=== PATIENT | male | born 1985 | race Two or more races ===

== ENCOUNTER 2025-11-06 20:54 | Observation (INO) | payer MEDICAID, SELFPAY ==
[2025-11-06 21:35] VITALS: BP 127/78; PULSE 100; RESP 20; TEMP 36.6; O2SAT 98
--- NOTE | 2025-11-06 21:45 | XR_ITS ---
Examination: CT abdomen with intravenous contrast CT pelvis with intravenous contrast 2-D coronal reconstructions 2-D sagittal reconstructions Date and time of exam: November 07, 2025, 0010 hours INDICATIONS: Right lower abdominal pain nausea vomiting and diarrhea onset today. CTDI: vol (mGy) 5.96 DLP: (mGycm) 336 Technique: Multiple axial sections of the abdomen and pelvis have been obtained. 64 slice high-resolution scanner used. 3 mm axial sections have been obtained, post intravenous injection 30 cc [id number] 2-D sagittal, coronal reconstructions obtained. Low dose protocols were performed. One or more of the following dose reduction techniques were used; automated exposure control, adjustment of the mA and/or KV according to patient size, use of iterative reconstruction technique. Findings: 4 mm pulmonary nodule left lower lobe 2 mm pulmonary nodule right lower lobe 3 mm pulmonary nodule left lower lobe no visualized liver or splenic lesion Possible minimal gallbladder sludge Bowel loop at the lower margin of the liver right lobe End-stage atrophic right kidney Compensatory hypertrophy left kidney no hydronephrosis Aorta normal size Proximal small bowel loops are located in the right abdomen No obstruction Normal appendix No diverticulitis Intact urinary bladder No prostatomegaly The osseous structures are intact with mild degenerative disc disease L4-L5, L5-S1 IMPRESSION: Pulmonary nodules as above, recommend follow-up Recommend about a biliary sonography to exclude small stones gallbladder sludge End-stage atrophic right kidney Compensatory hypertrophy left kidney Normal appendix No bowel obstruction
--- NOTE | 2025-11-06 21:46 | PD.EDABDPN ---
ED Abdominal Pain RME/HPI General Chief Complaint: Nausea/Vomiting/Diarrhea Stated complaint: DIARRHEA,VOMITING Time seen by provider: 11/06/25 21:45 Arrival date/time: 11/06/25 20:54 40M with history of DM presents to ED with 2 days of ab pain and N/V. Yesterday there was some non-bloody diarrhea, but no longer. Limitations: no limitations Related Data Allergies Allergy/AdvReac Type Severity Reaction Status Date / Time No Known Allergies Allergy Verified 11/06/25 21:48 Review of Systems Review of Systems Systems Reviewed: All systems reviewed, normal except as documented Gastrointestinal Gastrointestinal: Reports as per HPI, Reports abdominal pain, Reports diarrhea, Reports nausea and Reports vomiting Past Medical History Past Medical History ENDOCRINE: Positive Diabetes Mellitus Type 2 Social History SMOKING STATUS: Current some day smoker ED Exam General Limitations: Present no limitations General appearance: Present alert and in no apparent distress Head Head exam: Present atraumatic Neck Neck exam: Present normal inspection, full ROM and trachea midline Chest Chest inspection: Present normal inspection and symmetric chest wall rise Abdominal Exam Abdominal exam: Present soft Abdominal tenderness: Present RLQ and moderate Neurological Exam Neurological exam: Present alert and oriented X3 Psychiatric Psychiatric exam: Present normal affect and normal mood Skin Skin exam: Present warm, dry, intact and normal color Course Quality Measures none Orders Category Date Time Status Patient Condition Routine Admission 11/07/25 05:[address] in Observation Status Routine Admission 11/07/25 05:20 Active Activity as Tolerated Routine Care 11/07/25 05:21 Ordered Bedside Blood Glucose Q6HR Care 11/07/25 05:30 Active COVID-19 Screening Questionnaire NOW Care 11/07/25 05:[address] Screening NOW Care 11/06/25 21:45 Active Decision to Admit X1 Care 11/07/25 05:01 Active NPO NOW Care 11/07/25 02:06 Active Notify provider NEEDED Care 11/07/25 05:20 Active Consult to General Surgery Stat Cons 11/07/25 05:01 Ordered Diet NPO (NOW) Diet 11/07/25 02:[address] abdomen pelvis w con Stat Exams 11/06/25 21:45 Taken US gall bladder Stat Exams 11/07/25 01:41 Taken XR chest 1V portable Stat Exams 11/06/25 22:29 Completed Alcohol, Blood Medical Stat Lab 11/06/25 21:54 Completed BMP [Basic Metabolic Panel] Stat Lab 11/07/25 01:50 Completed Beta Hydroxybutyrate Stat Lab 11/06/25 21:54 Completed CBC AM DRAW Lab 11/08/25 05:00 Ordered CBC AM DRAW Lab 11/09/25 05:00 Ordered CBC AM DRAW Lab 11/10/25 05:00 Ordered CBC Stat Lab 11/06/25 21:54 Completed CMP [Comprehensive Metabolic Panel] Stat Lab 11/06/25 21:54 Completed Drug Screen,Urine Stat Lab 11/06/25 23:45 Completed Glycohemoglobin w (eAG) AM DRAW Lab 11/08/25 05:00 Ordered Lipase Stat Lab 11/06/25 21:54 Completed Liver Panel Stat Lab 11/07/25 01:50 Completed Renal Function Panel AM DRAW Lab 11/08/25 05:00 Ordered Renal Function Panel AM DRAW Lab 11/09/25 05:00 Ordered Renal Function Panel AM DRAW Lab 11/10/25 05:00 Ordered Urinalysis, C/S if Indicated Stat Lab 11/06/25 23:45 Completed VBG [Venous Blood Gas] Stat Lab 11/06/25 21:54 Completed Acetaminophen Tab [Tylenol Tab] Med 11/07/25 05:20 Active 650 mg PO Q6H PRN Dextrose 50% Syr [D50w Syringe Abboject] Med 11/07/25 05:20 Active 25 ml IV Q15MIN PRN Dextrose 50% Syr [D50w Syringe Abboject] Med 11/07/25 05:20 Active 50 ml IV Q15MIN PRN DiphenhydrAMINE INJ [Benadryl Inj] Med 11/06/25 22:05 Discontinued 12.5 mg IVP X1 ONE Glucagon Inj Med 11/07/25 05:20 Active 1 mg IM Q15MIN PRN Heparin Inj Med 11/07/25 05:30 Active 5,000 unit SC Q12H INSULIN LISPRO (AdmeLOG) [HumaLOG] Med 11/07/25 05:30 Active See Protocol SC Q6H Insulin Regular Med 11/06/25 22:26 Discontinued 10 unit SC X1 ONE Metoclopramide Inj [Reglan Inj] Med 11/07/25 05:20 Active 10 mg IVP Q6H PRN Metoclopramide Inj [Reglan Inj] Med 11/06/25 22:05 Discontinued 10 mg IVP X1 ONE Morphine* Inj Med 11/06/25 21:45 Discontinued 4 mg IV X1 ONE Ondansetron Inj [Zofran Inj] Med 11/06/25 21:45 Discontinued 4 mg IVP X1 ONE Ringers Lactated 1000 ml [Lactated Ringers] 1,000 ml Med 11/07/25 02:27 Active IV 250 mls/hr Ringers Lactated 1000 ml [Lactated Ringers] 1,000 ml Med 11/06/25 22:05 Discontinued IV 999 mls/hr Ringers Lactated 1000 ml [Lactated Ringers] 1,000 ml Med 11/06/25 22:26 Discontinued IV 999 mls/hr Code Status Routine Oth 11/07/25 05:20 Ordered Oxygen Delivery PRN RT 11/07/25 05:20 Active Vital Signs Vital signs: Vital Signs Temperature 97.8 F 11/06/25 21:35 Pulse Rate 100 11/06/25 21:35 Respiratory Rate 20 11/06/25 21:35 Blood Pressure 127/78 11/06/25 21:35 Pulse Oximetry (%) 98 11/06/25 21:35 Oxygen Delivery Method Room Air 11/06/25 21:35 O2 at 98% on RA and WNLs Abdominal Pain MDM MDM Narrative MDM Narrative:: 40M with history of DM presents to ED with 2 days of ab pain and N/V. Yesterday there was some non-bloody diarrhea, but no longer. Physical exam reveals RLQ tenderness. Patient is afebrile, calm, and alert. Moderate leukocytosis. CMP elevated BS and anion-gap. Beta 3.0, but blood pH is normal. UA ketones and glucose. Lipase normal. Marijuana positive. Repeat LFTs reveals downtrending of bili. Repeat BMP reveals no more anion-gap or electrolyte abnormalities. Patient is feeling better after meds and no longer has N/V. Telerad CT reveals no appy, but there is malrotation small bowels w/o SBO. Also possible colitis. Finally, there also gallstones and sludge, but no evidence of cholecystitis, which US Telerad confirms. Spoke to Dr. Wong, gen surg MD, who will consult. Spoke to IM resident who reports to Dr. Mishra, who will admit. Patient data External records reviewed:: None Clinical information provided by:: patient Social determinants that could affect healthcare access:: none Patient has the following chronic illnesses:: DM How is presenting disease/condition affected by chronic disease/condition?: exacerbated by Evaluation data The following diagnostics were reviewed and interpreted by me:: lab results and radiology exam(s) Lab and/or radiology exams considered but not ordered:: ordered Interpretation Summary: above Medications / Prescriptions Medications or Prescriptions considered but not ordered:: ordered Medication administrations:: Medication Administration History Acetaminophen (Acetaminophen 325 Mg Tablet) 650 mg PO Q6H PRN PRN Reason: Fever >101.5 or pain 1-3 Stop: 12/07/25 05:19 Dextrose (Dextrose 50%-Water Inj 50 Ml Syringe) 25 ml IV Q15MIN PRN PRN Reason: BG 50-70 responsive npo pt Stop: 12/07/25 05:19 Dextrose (Dextrose 50%-Water Inj 50 Ml Syringe) 50 ml IV Q15MIN PRN PRN Reason: BG <50 OR BG <70 & pt unresponsive Stop: 12/07/25 05:19 Glucagon (Glucagon Inj 1 Mg Vial) 1 mg IM Q15MIN PRN PRN Reason: BG <70, and no IV access Heparin Sodium (Porcine) (Heparin Sod Inj 5000 Unit/Ml Vial) 5,000 unit SC Q12H ROSIBEL Stop: 11/21/25 05:29 Lactated Ringer's (Lactated Ringers) 1,000 mls @ 250 mls/hr IV .Q4H ONE Stop: 11/07/25 06:26 Last Admin: 11/07/25 02:32 Dose: 250 mls/hr Documented By: AU Insulin Human Lispro (Insulin Lispro (Admelog) 1 Unit/0.01 Ml Unit) 0 unit SC Q6H ROSIBEL; Protocol Stop: 12/07/25 05:29 Metoclopramide HCl (Metoclopramide Inj 5 Mg/Ml Vial 2 Ml) 10 mg IVP Q6H PRN; Protocol PRN Reason: NAUSEA OR VOMITING Stop: 12/07/25 05:19 Discontinued Medications Diphenhydramine HCl (Diphenhydramine Inj 50 Mg/Ml Vial) 12.5 mg IVP X1 ONE Stop: 11/06/25 22:06 Last Admin: 11/06/25 22:12 Dose: 12.5 mg Documented By: EE Lactated Ringer's (Lactated Ringers) 1,000 mls @ 999 mls/hr IV .Q1H1M ONE Stop: 11/06/25 23:05 Last Infusion: 11/06/25 23:48 Dose: Infused Documented By: Admin: 11/06/25 22:09 Dose: 999 mls/hr Documented By: EE Lactated Ringer's (Lactated Ringers) 1,000 mls @ 999 mls/hr IV .Q1H1M ONE Stop: 11/06/25 23:26 Last Infusion: 11/07/25 01:06 Dose: Infused Documented By: Admin: 11/06/25 22:56 Dose: 999 mls/hr Documented By: CCT Insulin Human Regular (Insulin Hum Regular 1 Unit/0.01 Ml (Per Unit)) 10 unit SC X1 ONE Stop: 11/06/25 22:27 Last Admin: 11/06/25 22:54 Dose: 10 unit Documented By: CCT Co-signed By: NICOLA Metoclopramide HCl (Metoclopramide Inj 5 Mg/Ml Vial 2 Ml) 10 mg IVP X1 ONE; Protocol Stop: 11/06/25 22:06 Last Admin: 11/06/25 22:12 Dose: 10 mg Documented By: EE Morphine Sulfate (Morphine Sulf Inj 4 Mg/Ml Vial) 4 mg IV X1 ONE Stop: 11/06/25 21:46 Last Admin: 11/06/25 22:06 Dose: 4 mg Documented By: EE Ondansetron HCl (Ondansetron Inj 2 Mg/Ml Inj 2 Ml) 4 mg IVP X1 ONE; Protocol Stop: 11/06/25 21:46 Last Admin: 11/06/25 22:06 Dose: 4 mg Documented By: NICOLA above Consultations Consultation(s) initiated? (list below): Yes Diagnosis Differential diagnosis abdominal pain: abdominal pain, acute appendicitis, calculus of kidney, constipation, diverticulitis, gastroenteritis, pancreatitis, small bowel obstruction and other (DKA, hyperglycemia, malrotation of bowel) Most likely diagnosis given after review of the tests above:: hyperglycemia, malrotation of bowel Admission Indicated Admission indicated?: indicated Admission Request Was there a request for admission?: Yes Admission Attestation Admission request attestation: Discussed case with [Dr. Mishra] from Hospitalist service regarding admission. Discussed patients ED course, exam findings, labs, and radiology results. The Hospitalist [agrees] to accept the patient for admission. Disposition Plan Disposition Plan: Admit Discharge Plan Plan Patient Disposition: Other Care w/in Hosp ([facility]) Prescriptions/Referrals Referrals: No Primary/Family,Physician [Primary Care Provider] - In 1 week Problem List Clinical Impression: Hyperglycemia, Malrotation of intestine Patient/Caregiver Discharge Instructions Print Language: Filipino Stand Alone Forms: Luz Award Info., Patient Portal Info Letter
[2025-11-06 22:01] LABS: Base Excess, Venous 0 (-3-3); Basophils # (Auto) 0.1 Thou/mm3 (0.0-0.2); Basophils % (Auto) 0 % (0-2.5); Eosinophils # (Auto) 0.0 Thou/mm3 (0.0-0.5); Eosinophils % (Auto) 0 % (0-10); Hematocrit 44.5 % (41.0-53.0); Hemoglobin 16.4 g/dL (13.5-16.0); Immature Granulocytes Auto 0.22 Thou/mm3 (0.00-0.00); Lymphocytes # (Auto) 1.3 Thou/mm3 (1.0-4.8); Lymphocytes % (Auto) 8 % (10-50); Mean Corpuscular HGB Conc 36.9 g/dl (31.0-37.0); Mean Corpuscular Hemoglobin 30.3 pg (25.0-35.0); Mean Corpuscular Volume 82 fL (80-100); Monocytes # (Auto) 0.4 Thou/mm3 (0.0-0.8); Monocytes % (Auto) 2 % (0-12); Neutrophils # (Auto) 13.4 Thou/mm3 (1.8-7.7); Neutrophils % (Auto) 88 % (37-80); Nucleated Red Blood Cell # 0.00 Thou/mm3 (0.00-0.00); Nucleated Red Blood Cell % 0 /100 WBC (0); O2 Saturation, Venous 63 % (96-97); PCO2, Venous 25 mmHg (36-56); PO2, Venous 28 mmHg (15-58); Platelet Count 346 Thou/mm3 (140-440); RDW Standard Deviation 36.4 fL (35.1-43.9); Red Blood Count 5.42 Miln/mm3 (4.50-5.90); White Blood Count 15.2 Thou/mm3 (3.8-10.6); pH, Venous 7.52 (7.33-7.66)
[2025-11-06] MEDS: ONDANSETRON INJ 2 MG/ML INJ 2 ML 4 MG IVP (22:06)
[2025-11-06] MEDS: MORPHINE SULF INJ 4 MG/ML VIAL IV (22:06)
[2025-11-06] MEDS: RINGERS LACTATED 1000 ML 1,000 ML 999 ML IV ×2 (22:09→22:56)
[2025-11-06 22:12] VITALS: BP 135/95; PULSE 93; RESP 18; TEMP 36.7; O2SAT 99
[2025-11-06 22:12] LABS: Beta Hydroxybutyrate 3.0 mmol/L (<0.6)
[2025-11-06] MEDS: METOCLOPRAMIDE INJ 5 MG/ML VIAL 2 ML 10 MG IVP (22:12)
[2025-11-06 22:23] LABS: Alanine Aminotransferase 9 U/L (10-49); Albumin, Serum 5.4 gm/dL (3.5-5.0); Albumin/Globulin Ratio 1.4 (1.2-2.2); Alcohol, Blood Medical < 3.0 mg/dL (0-10.0); Alkaline Phosphatase 90 U/L (46-116); Anion Gap 20 (7-16); Aspartate Amino Transferase 13 U/L (0-34); BUN/Creatinine Ratio 11 Ratio (12-20); Bilirubin,Total 1.2 mg/dL (0.3-1.2); Blood Urea Nitrogen 16 mg/dL (9-23); Calcium 10.7 mg/dL (8.3-10.6); Calcium (Corrected) 10.7 mg/dL (8.5-10.1); Carbon Dioxide 20.6 mMol/L (20.0-31.0); Chloride 93 mMol/L (98-107); Creatinine (Component) 1.4 mg/dL (0.6-1.3); Globulin 4.0 gm/dL (2.3-3.5); Lipase 31 U/L (12-53); Potassium 4.3 mMol/L (3.4-5.1); Sodium 134 mMol/L (136-145); Total Protein 9.4 gm/dL (5.7-8.2); eGFR > 60 See Note
--- NOTE | 2025-11-06 22:29 | XR_ITS ---
EXAMINATION: AP chest single view TECHNIQUE: AP portable upright chest single view Date and time: November 06, 2025, 11:01 p.m. INDICATIONS: Nausea vomiting abdominal pain beginning 2 days ago. FINDINGS: Normal heart size No pneumonia or pulmonary edema. Intact osseous structures IMPRESSION: No active disease
[2025-11-06 22:39] LABS: Osmolality,Calculated 287 (275-295)
[2025-11-06 22:51] LABS: Glucose 424 mg/dL (74-106)
[2025-11-06] MEDS: INSULIN HUM REGULAR 1 UNIT/0.01 ML (PER UNIT) 10 UNIT SC (22:54)
[2025-11-06 23:48] LABS: Collection Type, Urine Clean Catch
[2025-11-07 00:08] LABS: Amphetamine/Methamp Scrn,U Negative (Negative); Barbiturate Screen,Urine Negative (Negative); Benzodiazepines Screen,Urine Negative (Negative); Benzoylecgonine Screen, Ur Negative (Negative); Fentanyl Screen,Urine Negative (Negative); Opiate Screen,Urine Positive (Negative); THC Screen,Urine Positive (Negative)
[2025-11-07 00:20] LABS: Bilirubin,Urine Negative (Negative); Blood,Urine Negative (Negative); Clarity,Urine Clear (Clear/Hazy); Color,Urine Lt-Yellow (Lt Yel-Yel); Culture Indicated,Urine Not Indicated; Glucose, Urine 4+ (Negative); Ketones,Urine 4+ (Negative); Leukocyte Esterase,Urine Negative (Negative); Nitrite,Urine Negative (Negative); PH,Urine 5.5 (5.0-7.0); Protein,Urine 1+ (Neg - Trace); RBC,Urine 1 /hpf (0-3); Specific Gravity,Urine 1.036 (1.001-1.035); Squamous Epithelial Cell,Urine < 1 /hpf (0-5); Urobilinogen,Urine Negative mg/dL (0.0-1.0); WBC,Urine < 1 /hpf (0-5)
[2025-11-07 01:00] VITALS: BP 103/63; PULSE 103; RESP 17; TEMP 36.9; O2SAT 96
--- NOTE | 2025-11-07 01:23 | PRELIM_ITS ---
PRELIM ADDENDUM Faint contrast is noted in the intraabdominal vessels and renal pyramid (possibly due to small contrast bolus or infiltration of injected contrast), this limits evaluation of the adjacent structures. Suggest clinical correlation and follow up accordingly. These additional findings were discussed with Dr. Easton by Dr. Ruelas at at 02:42 AM 11/07/2025. Report Electronically Signed By: Manoj Ruelas 11/07/2025 2:50:43 AM [EST] ORIGINAL PRELIM REPORT: CT scan of the abdomen and pelvis without intravenous contrast (axial sections with sagittal and coronal reformats) November 07, 2025 0010 hours Clinical History: Right lower quadrant pain, nausea, vomiting, and some diarrhea Comparison: No prior study available for comparison at the time of interpretation. Findings: Mild fatty infiltration of the liver is seen. There is a 2.7 x 2 x 4 cm hypodense structure with small air loculus in the inferior margin of the right lobe of the liver (axial images 76. 95/264 ) most likely adjacent bowel segment. There is minimal gallbladder sludge, non-radiodense calculus without CT evidence of cholelithiasis or cholecystitis. The spleen, both adrenals, and pancreas are unremarkable. The visualized right kidney is atrophic (coronal image 82/132 ), most likely developmental. The left kidney is unremarkable. There is malrotation of the bowel with DJ flexure and the proximal small bowel loops located in the right side of the abdomen. There is no bowel obstruction. The cecum is low-lying in the pelvis. The appendix is within normal limits (axial image 154-170/264). There is wall thickening versus underdistention of the descending and transverse colon; possibility of colitis cannot be excluded. The urinary bladder is partially distended and shows mild wall thickening; possibility of cystitis cannot be excluded. There is no free fluid or free air. Aorta is unremarkable. There is disc disease in the lumbar spine, predominantly at L4-L5 and L5-S1 level. There are indeterminate lung nodules, largest measuring 5 mm subpleural nodule in the left lung base (axial image 10/264, series 3). Please note that evaluation of soft tissue/vascular structures and bowel loops is limited due to absence of IV and oral contrast. Impression: 1. No evidence of acute appendicitis. 2. Malrotation of the bowel. 3. Wall thickening versus underdistention of the descending and transverse colon; possibility of colitis cannot be excluded. 4. Gallbladder sludge/small calculi without CT evidence of cholecystitis. Suggest further evaluation with sonography, if clinically indicated. 5. Partially distended urinary bladder with mild wall thickening; possibility of cystitis cannot be excluded. 6. Indeterminate lung nodules as described. 7. Other findings as described above. Suggest correlation with clinical findings, comparison with prior studies and follow up accordingly. Report Electronically Signed By: Manoj Ruelas 11/07/2025 1:22:56 AM [EST]
--- NOTE | 2025-11-07 01:41 | XR_ITS ---
Examination: Abdomen sonogram, Limited Date and time of exam: November 07, 2025, 0300 hours INDICATIONS: Right upper abdominal pain nausea and vomiting today. Technique: Real-time gomez scale transabdominal sonographic images of the upper abdomen obtained. Findings: Normal gallbladder Normal common bile duct 0.40 cm Pancreatic head 2.1 cm Liver 12.97 cm hyperechoic area in the right lobe of the liver 2.1 x 2.0 x 2.5 cm Normal hepatopetal portal venous flow Patent IVC IMPRESSION: Normal gallbladder Probable hemangioma right lobe of the liver, recommend 3-month follow-up hepatic sonography
[2025-11-07 02:21] LABS: Alanine Aminotransferase 8 U/L (10-49); Albumin, Serum 4.3 gm/dL (3.5-5.0); Alkaline Phosphatase 71 U/L (46-116); Anion Gap 10 (7-16); Aspartate Amino Transferase 14 U/L (0-34); BUN/Creatinine Ratio 14 Ratio (12-20); Bilirubin,Direct 0.2 mg/dL (0.0-0.3); Bilirubin,Total 0.7 mg/dL (0.3-1.2); Blood Urea Nitrogen 15 mg/dL (9-23); Calcium 9.5 mg/dL (8.3-10.6); Carbon Dioxide 25.7 mMol/L (20.0-31.0); Chloride 100 mMol/L (98-107); Creatinine (Component) 1.1 mg/dL (0.6-1.3); Glucose 262 mg/dL (74-106); Osmolality,Calculated 281 (275-295); Potassium 4.0 mMol/L (3.4-5.1); Sodium 136 mMol/L (136-145); Total Protein 7.6 gm/dL (5.7-8.2); eGFR > 60 See Note
[2025-11-07 02:30] VITALS: BP 122/85; PULSE 99; RESP 20; TEMP 36.8; O2SAT 96
[2025-11-07] MEDS: RINGERS LACTATED 1000 ML 1,000 ML 250 ML IV (02:32)
--- NOTE | 2025-11-07 04:25 | PRELIM_ITS ---
Gallbladder ultrasound. November 07, 2025 0300 hours Clinical history: RUQ pain Comparison: No prior study is available for comparison. Findings: Gallbladder wall is 2 mm thick. No pericholecystic fluid. No cholelithiasis or gallbladder sludge. Common bile duct is 4 mm diameter. Pancreas is normal caliber without focal lesion. Liver is 13 cm long. Probable 2 cm hepatic hemangiomas are noted. No ascites. Main portal vein is antegrade. Inferior vena cava is patent. Impression: Normal gallbladder. Probable hepatic hemangiomas. Report Electronically Signed By: Renato Muse 11/07/2025 4:25:12 AM [EST]
--- NOTE | 2025-11-07 05:25 | PD.RESHP ---
Documentation for date of: 11/07/25 [facility] History of Present Illness Chief complaint: Abdominal pain and nausea/vomiting History of present illness: Patient is a 40-year-old male with history of type 2 diabetes mellitus who presented to [facility] ED on 11/06 for nausea and vomiting with abdominal pain for the past 2 days. 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 The patient states that he had some diarrhea a few days prior to his abdominal pain and nausea/vomiting. After the diarrhea stopped, the patient had abdominal pain and nausea and vomiting for about 2 days. The patient is still able to have bowel movements, with his most recent 1 yesterday. When the patient came into the ED, the patient was found to be in significant hyperglycemia with elevated beta hydroxybutyrate but without metabolic acidosis, and was treated with 10 units of regular insulin and 3 L of IV fluids, with the following renal panel showing improvement of the patient's hyperglycemia and continued lack of metabolic acidosis. The patient stated that he was recently prescribed both metformin and insulin, and became confused as to which one of the 2 medications he should take, so he ended up taking neither of them. Due to the patient's abdominal pain, CT abdomen/pelvis was performed, which found malrotation of bowel without bowel obstruction, gallbladder//small calculi without evidence of cholecystitis, and partially distended urinary bladder. A follow-up gallbladder ultrasound was performed, which found a normal gallbladder and a possible hepatic hemangioma. ED provider spoke with general surgery, who would like for the patient to be admitted under observation for further evaluation. The patient denies any fever, chest pain, shortness of breath, and dysuria. ED course: Initial vitals unremarkable. Initial labs significant for WBC 15.2, sodium 134, chloride 93, anion gap 20, creatinine 1.4, glucose 424, and beta hydroxybutyrate 3.0. Urinalysis was positive for 1+ protein, 4+ glucose, and 4+ ketones. Urine toxicology positive for marijuana and opiates (UA was done after administration of morphine). Patient was given 3 L of fluid and insulin regular 10 units, with repeat CMP showing improvement in patient's hyperglycemia and resolution of other electrolyte abnormalities Chest x-ray was unremarkable CT abdomen/pelvis shows malrotation of the bowel, gallbladder/small calculi without evidence of cholecystitis, and partially distended urinary bladder with mild wall thickening General surgery was consulted, who recommended admitting the patient under observation for further care and evaluation Past Surgical History: Heart surgery for murmur in his heart when he was 5 years old Current Medication(s): Patient's prescribed insulin and metformin, however is not taking any current medications at this time Allergies (w/ Reactions): NKDA Family History: Noncontributory Alcohol Intake: Occasional Tobacco/Vape Use: Patient denies Other Drug Use: Marijuana Recent sick contacts: 3 people in his house noted to be sick, no other reports of diarrhea however Review of Systems Review of Systems Systems Reviewed: All systems reviewed, normal except as documented Exam Vital Signs Temp Pulse Resp BP Pulse Ox O2 Del Method 98.2 F 99 20 122/85 H 96 Room Air 11/07/25 02:30 11/07/25 02:30 11/07/25 02:30 11/07/25 02:30 11/07/25 02:30 11/07/25 02:30 Narrative Exam Physical Exam: General: Alert, no acute distress. Skin: Warm, dry, intact. Head: Normocephalic, atraumatic. Eye: Normal conjunctiva, PERRL. Throat: Oral mucosa moist. No obvious lesions in oropharynx. Cardiovascular: Regular rate and rhythm, systolic murmur best heard in aortic/pulmonic region, +S1/S2. Surgical scars present over midline chest. Respiratory: Lungs are clear to auscultation, respirations unlabored, no crackles, no wheezing. Gastrointestinal: Soft, slight tenderness to palpation of abdomen on right side, non-distended. No guarding or rebound tenderness. Extremities: No edema, no cyanosis, no clubbing. 2+ radial pulse bilaterally, 2+ pedal pulse bilaterally. Neuro: No focal deficits observed. Conversant, moving all extremities. No overt cerebellar signs/incoordination. Psychiatric: Cooperative, appropriate affect. Results: Labs 11/07/25 05:49 11/07/25 05:49 Labs: Short CBC 11/06/25 Range/Units 21:54 WBC 15.2 H (3.8-10.6) Thou/mm3 Hgb 16.4 H (13.5-16.0) g/dL Hct 44.5 (41.0-53.0) % Plt Count 346 (140-440) Thou/mm3 BMP 11/06/25 11/07/25 21:54 01:50 Sodium 134 L 136 Potassium 4.3 4.0 Chloride 93 L 100 Carbon Dioxide 20.6 25.7 BUN 16 15 Creatinine 1.4 H 1.1 Glucose 424 H* 262 H D Calcium 10.7 H 9.5 Liver Function 11/06/25 11/07/25 Range/Units 21:54 01:50 Total Bilirubin 1.2 0.7 D (0.3-1.2) mg/dL Direct Bilirubin 0.2 (0.0-0.3) mg/dL AST 13 14 (0-34) U/L ALT 9 L 8 L (10-49) U/L Alkaline Phosphatase 90 71 D (46-116) U/L Albumin 5.4 H 4.3 D (3.5-5.0) gm/dL Urine 11/06/25 Range/Units 23:45 Urine Color Lt-Yellow (Lt Yel-Yel) Urine Clarity Clear (Clear/Hazy) Urine pH 5.5 (5.0-7.0) Ur Specific [place] 1.036 H (1.001-1.035) Urine Protein 1+ A (Neg - Trace) Urine Glucose (UA) 4+ A (Negative) ABG Interpretation ABG results: 11/06/25 21:54 VBG pH 7.52 VBG pCO2 25 L VBG pO2 28 VBG Base Excess 0 Quality Measures Quality Measures VTE prophylaxis Medications Home Medications and Allergies Allergies Allergy/AdvReac Type Severity Reaction Status Date / Time No Known Allergies Allergy Verified 11/06/25 21:48 Visit Medications Acetaminophen (Acetaminophen 325 Mg Tablet) 650 mg PO Q6H PRN PRN Reason: Fever >101.5 or pain 1-3 Stop: 12/07/25 05:19 Dextrose (Dextrose 50%-Water Inj 50 Ml Syringe) 25 ml IV Q15MIN PRN PRN Reason: BG 50-70 responsive npo pt Stop: 12/07/25 05:19 Dextrose (Dextrose 50%-Water Inj 50 Ml Syringe) 50 ml IV Q15MIN PRN PRN Reason: BG <50 OR BG <70 & pt unresponsive Stop: 12/07/25 05:19 Glucagon (Glucagon Inj 1 Mg Vial) 1 mg IM Q15MIN PRN PRN Reason: BG <70, and no IV access Heparin Sodium (Porcine) (Heparin Sod Inj 5000 Unit/Ml Vial) 5,000 unit SC Q12H ROSIBEL Stop: 11/21/25 05:29 Lactated Ringer's (Lactated Ringers) 1,000 mls @ 250 mls/hr IV .Q4H ONE Stop: 11/07/25 06:26 Last Admin: 11/07/25 02:32 Dose: 250 mls/hr Insulin Human Lispro (Insulin Lispro (Admelog) 1 Unit/0.01 Ml Unit) 0 unit SC Q6H ROSIBEL; Protocol Stop: 12/07/25 05:29 Metoclopramide HCl (Metoclopramide Inj 5 Mg/Ml Vial 2 Ml) 10 mg IVP Q6H PRN; Protocol PRN Reason: NAUSEA OR VOMITING Stop: 12/07/25 05:19 Discontinued Medications Diphenhydramine HCl (Diphenhydramine Inj 50 Mg/Ml Vial) 12.5 mg IVP X1 ONE Stop: 11/06/25 22:06 Last Admin: 11/06/25 22:12 Dose: 12.5 mg Lactated Ringer's (Lactated Ringers) 1,000 mls @ 999 mls/hr IV .Q1H1M ONE Stop: 11/06/25 23:05 Last Infusion: 11/06/25 23:48 Dose: Infused Lactated Ringer's (Lactated Ringers) 1,000 mls @ 999 mls/hr IV .Q1H1M ONE Stop: 11/06/25 23:26 Last Infusion: 11/07/25 01:06 Dose: Infused Insulin Human Regular (Insulin Hum Regular 1 Unit/0.01 Ml (Per Unit)) 10 unit SC X1 ONE Stop: 11/06/25 22:27 Last Admin: 11/06/25 22:54 Dose: 10 unit Metoclopramide HCl (Metoclopramide Inj 5 Mg/Ml Vial 2 Ml) 10 mg IVP X1 ONE; Protocol Stop: 11/06/25 22:06 Last Admin: 11/06/25 22:12 Dose: 10 mg Morphine Sulfate (Morphine Sulf Inj 4 Mg/Ml Vial) 4 mg IV X1 ONE Stop: 11/06/25 21:46 Last Admin: 11/06/25 22:06 Dose: 4 mg Ondansetron HCl (Ondansetron Inj 2 Mg/Ml Inj 2 Ml) 4 mg IVP X1 ONE; Protocol Stop: 11/06/25 21:46 Last Admin: 11/06/25 22:06 Dose: 4 mg Assessment & Plan Plan Patient is a 40-year-old male with history of type 2 diabetes mellitus who presented to [facility] ED on 11/06 for nausea and vomiting with abdominal pain for the past 2 days. 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 This usually occurs as a congenital condition and does not get found in the later into adulthood. This condition can cause chronic symptoms such as intermittent abdominal pain, vomiting, and food intolerance. Treatment: General Surgery consulted, appreciate recommendations Patient made n.p.o. until evaluation by general surgery Zofran as needed for nausea/vomiting Pain control with Tylenol and ketorolac as needed #Insulin-dependent type 2 diabetes mellitus #Elevated beta-hydroxybutyrate #Hyperglycemia Patient noted to have been recently prescribed insulin for management of his diabetes. Patient did not take insulin nor did he take his metformin as he was confused as to what to take, so he decided to take neither. Patient initially presented with severe hyperglycemia and elevated hydroxybutyrate, however did not appear to be in DKA given lack of metabolic acidosis. This was appropriately treated in the ED with IV fluids and subcutaneous insulin. Treatment: Sliding scale insulin Bedside glucose checks every 6 hours, will change to ACHS once cleared from n.p.o. Hemoglobin A1c ordered, pending Repeat beta-hydroxybutyrate ordered, pending Will keep NPO for now pending surgical evaluation #History of cardiac surgery Patient noted to have a history of cardiac surgery for heart murmur as a child. Surgical scars present on chest. Systolic murmur appreciated in aortic/pulmonic region. Treatment: Consider echocardiogram Patient to follow-up outpatient DVT Prophylaxis: Heparin GI Prophylaxis: N/A Bowel: N/A Diet: NPO Tello: N/A Lines: Peripheral IV Antibiotics: N/A Code Status: FULL Reason for Hospitalization: Malrotation of bowel Other Barriers to Discharge: General surgery evaluation Patient plan of care was discussed with attending physician Dr. Danica Lopez, PGY1 Attending Provider Attestation/Addendum I or my resident physicians have discussed care with the ED physician and I have made the decision to admit. I have discussed and was present for the essential components of the history, physical examination, diagnosis, and treatment plan with the resident. I agree with the patient's care as documented by the resident and amended herein by me. Skip Mishra DO. Although this document has been carefully reviewed, there may still be some phonetic and other typographical errors. These errors are purely grammatical due to imperfections in the software program and should not be construed in any way to compromise the substance of the patient's medical care during this visit.
[2025-11-07 05:56] LABS: Basophils # (Auto) 0.0 Thou/mm3 (0.0-0.2); Basophils % (Auto) 0 % (0-2.5); Eosinophils # (Auto) 0.0 Thou/mm3 (0.0-0.5); Eosinophils % (Auto) 0 % (0-10); Hematocrit 36.9 % (41.0-53.0); Hemoglobin 13.6 g/dL (13.5-16.0); Immature Granulocytes Auto 0.16 Thou/mm3 (0.00-0.00); Lymphocytes # (Auto) 2.2 Thou/mm3 (1.0-4.8); Lymphocytes % (Auto) 16 % (10-50); Mean Corpuscular HGB Conc 36.9 g/dl (31.0-37.0); Mean Corpuscular Hemoglobin 30.2 pg (25.0-35.0); Mean Corpuscular Volume 82 fL (80-100); Monocytes # (Auto) 1.1 Thou/mm3 (0.0-0.8); Monocytes % (Auto) 8 % (0-12); Neutrophils # (Auto) 9.9 Thou/mm3 (1.8-7.7); Neutrophils % (Auto) 74 % (37-80); Nucleated Red Blood Cell # 0.00 Thou/mm3 (0.00-0.00); Nucleated Red Blood Cell % 0 /100 WBC (0); Platelet Count 280 Thou/mm3 (140-440); RDW Standard Deviation 36.6 fL (35.1-43.9); Red Blood Count 4.50 Miln/mm3 (4.50-5.90); White Blood Count 13.4 Thou/mm3 (3.8-10.6)
[2025-11-07 06:00] VITALS: BP 120/87; PULSE 83; RESP 19; TEMP 36.6; O2SAT 98
[2025-11-07 06:09] LABS: Beta Hydroxybutyrate 0.4 mmol/L (<0.6)
[2025-11-07 06:16] LABS: Albumin, Serum 4.4 gm/dL (3.5-5.0); Anion Gap 10 (7-16); BUN/Creatinine Ratio 10 Ratio (12-20); Blood Urea Nitrogen 11 mg/dL (9-23); Calcium 9.5 mg/dL (8.3-10.6); Calcium (Corrected) 9.5 mg/dL (8.5-10.1); Carbon Dioxide 27.5 mMol/L (20.0-31.0); Chloride 101 mMol/L (98-107); Creatinine (Component) 1.1 mg/dL (0.6-1.3); Glucose 185 mg/dL (74-106); Osmolality,Calculated 280 (275-295); Phosphorous 3.0 mg/dL (2.4-5.1); Potassium 3.5 mMol/L (3.4-5.1); Sodium 138 mMol/L (136-145); eGFR > 60 See Note
[2025-11-07 06:17] LABS: Glucose Estimated Average 212 mg/dL (80-131); Hemoglobin A1C 9.0 % Hgb (4.8-6.0)
[2025-11-07] MEDS: HEPARIN SOD INJ 5000 UNIT/ML VIAL SC (06:34)
[2025-11-07] MEDS: INSULIN LISPRO (AdmeLOG) 1 UNIT/0.01 ML UNIT SC ×3 (06:34→18:05)
--- NOTE | 2025-11-07 06:44 | PC.NURSE ---
Report given to GAVI Stacy med-surg
--- NOTE | 2025-11-07 07:00 | PC.NURSE ---
Resident Dr. Gonzalez made aware degludec 10units sc held, BS 204, pt is NPO; however 2unit Lispro sc given. No new orders received at this time.
[2025-11-07 07:50] VITALS: BMI 24.0
[2025-11-07 08:00] VITALS: BP 138/86; PULSE 84; RESP 17; TEMP 36.2; O2SAT 97
[2025-11-07] MEDS: INSULIN DEGLUDEC 5 UNIT/0.05 ML (PER 5 UNITS) SC (08:25)
[2025-11-07] MEDS: RINGERS LACTATED 1000 ML 1,000 ML 999 ML IV (08:29)
[2025-11-07 09:38] VITALS: BMI 23.8
--- NOTE | 2025-11-07 10:16 | PD.SURCONS ---
HPI Consult details Consult date: 11/07/25 Reason for consultation narrative: The patient was seen in consultation because of an abnormal CT finding which showed possible small rotation of the intestine History of present illness: History of present illness revealed that the patient had severe diarrhea 2 days ago followed by severe vomiting yesterday. It was numerous times that he has never had this problem in the past. He is visiting from [place] for the holidays. He has diabetes that is poorly controlled and he has not been seeing a physician in [place]. His past medical history revealed some cardiac surgery when he was 5 years old. Past Medical History Past Medical History CARDIAC: Negative Cardiac Disorders or Congestive Heart Failure RESPIRATORY: Negative Chronic Obstructive Pulmonary Disease (COPD) or Asthma GENITOURINARY: Negative Renal Disease ENDOCRINE: Positive Diabetes Mellitus Type 2; Negative Diabetes Mellitus Type 1 HEMATOLOGIC: Negative Sickle Cell Disease Social History SMOKING STATUS: Current some day smoker Meds Home Medications and Allergies Allergies Allergy/AdvReac Type Severity Reaction Status Date / Time No Known Allergies Allergy Verified 11/06/25 21:48 Exam Vital Signs Temp Pulse Resp BP Pulse Ox O2 Del Method 97.2 F 84 17 138/86 H 97 Room Air 11/07/25 08:00 11/07/25 08:00 11/07/25 08:00 11/07/25 08:00 11/07/25 08:00 11/07/25 08:00 Narrative Exam Physical examination revealed 40-year-old male who is weighing 151 pounds. His vital signs are normal. Patient denies any abdominal pain Constitutional Constitutional: no acute distress Routine Chest/Breast/Axilla Exam Comments: Revealed midline surgical scar from the previous pediatric surgery Routine Abdominal Exam Comments: Examination of the abdomen showed the to be flat and not tender anywhere. Bowel sounds are present Routine Rectal Exam Comments: Deferred Results Results: Laboratory Laboratory Narrative: Laboratory workup shows mild leukocytosis around 15,000. Electrolytes showed marked elevation of the glucose when he arrived with 424. Hemoglobin A1c is 9 Results: Imaging Imaging narrative: CT scan showed no significant abnormality. Candace radiologist reported possible malrotation of the intestine Assessment & Plan Additional Assessment Additional comments: Impression: Possible gastroenteritis Leukocytosis secondary to #1 Poorly controlled diabetes Plan Plan: Patient does not have any surgical conditions. I do not know what to make of the isolated CT finding of malrotation with until radiologist. I will treat him symptomatically and discharge him. He requires control of the diabetes
[2025-11-07] MEDS: CAPSAICIN CR 60 GM TUBE TOP ×2 (10:49→15:16)
[2025-11-07] MEDS: POTASSIUM CHLORIDE 10% 20 MEQ/15 ML UDC 40 MEQ PO (10:49)
[2025-11-07 12:00] VITALS: BP 137/94; PULSE 87; RESP 18; TEMP 36.6; O2SAT 100
--- NOTE | 2025-11-07 12:27 | ESDS_ITS ---
<Statement entered by Willie Alford MD - 11/07/25 17:34> I saw and examined patient personally and supervised PGY 1 resident, Dr. Gonzaelz with formulating a discharge plan. I agree with the documentation as listed below. Plan of care discussed with Attending Dr. Deonte Alford MD PGY 2 Disclaimer: This note was dictated by speech recognition. Minor errors in rn navigator may be present due to voice recognition software. Planned Discharge Date 11/07/25 DS: Providers Provider Date of admission: 11/07/25 05:20 Primary care physician: Physician No Primary/Family Admitting Provider: Mauri Lopez DO Attending Provider on Admission: Mauri Lopez DO Consults: 11/07/25 05:01 Consult to General Surgery Stat Comment: Consulting Provider: Jose Maria Wong 11/07/25 08:10 Referral Registered Dietitian Routine Comment: Uncontrolled Diabetes. 11/07/25 08:11 Referral Registered Dietitian Routine Comment: Attending Provider on DC: Matthew Clemons MD Discharging Provider: Matthew Clemons MD DS: Diagnosis Problem List Completed Was Problem List Reviewed/Reconciled?: Yes Hospital Course Hospital Course Hospital course: 40-year-old male with history of type 2 diabetes mellitus who presented to [facility] ED on 11/06 for nausea and vomiting with abdominal pain for the past 2 days. Patient was admitted for management of hyperglycemia. Upon admission, initial labs revealed elevated WBC at 15.2, sodium of 134, chloride of 93, anion gap of 20, creatinine of 1.4, glucose of 424, and beta- hydroxybutyrate of 3.0, though the ABG showed a pH of 7.52. Urinalysis was positive for 1+ protein, 4+ glucose, and 4+ ketones. Urine toxicology was positive for marijuana and opiates, with the UA being collected after morphine administration. The patient was initially given 3 L of IV fluids and 10 units of regular insulin, with subsequent repeat CMP showing marked improvement in hyperglycemia and correction of electrolyte imbalances. A chest X-ray was unremarkable. CT abdomen/pelvis initially raised concern for malrotation of the bowel, but the final read was negative. Findings also included gallbladder and s mall calculi without signs of cholecystitis, and a partially distended urinary bladder with mild wall thickening. General surgery was consulted and ruled out malrotation, recommending no surgical intervention. The patient has since been passing gas and stool and is tolerating a regular diet. Patient has A1c of 9.0 and not compliant with meds. Instructed to take insulin and metformin. Discharge instructions: - You have been started on Metformin. Take as directed below. - You have been started on Insulin. Take 5 units a day. - Follow up with your primary care physician within 1 week of discharge. If you do not have a primary care physician, please follow up with the [facility] Residents clinic ([phone]) ? If you experience any new, worsening or persistent symptoms either call your primary doctor, or dial 911 or present to the emergency department. Admission diagnoses: #Abdominal pain #Nausea/vomiting #Insulin-dependent type 2 diabetes mellitus #Elevated beta-hydroxybutyrate #Hyperglycemia #History of cardiac surgery Case discussed with my attending Dr. Clemons, and senior resident, Dr. Prashanth Gonzalez MD PGY-1 Status at Discharge Overall status at discharge: patient is progressing back to baseline Time Spent with Patient Time attestation: Total time spent providing and/or coordinating discharge services: 38 minutes Time spent: Greater than 30 minutes Exam Vital Signs Temp Pulse Resp BP Pulse Ox O2 Del Method 97.2 F 84 17 138/86 H 97 Room Air 11/07/25 08:00 11/07/25 08:00 11/07/25 08:00 11/07/25 08:00 11/07/25 08:00 11/07/25 08:00 Narrative Exam General: Alert, no acute distress. Skin: Warm, dry, intact. Head: Normocephalic, atraumatic. Eye: Normal conjunctiva, PERRL. Throat: Oral mucosa moist. No obvious lesions in oropharynx. Cardiovascular: Regular rate and rhythm, systolic murmur best heard in aortic/p ulmonic region, +S1/S2. Surgical scars present over midline chest. Respiratory: Lungs are clear to auscultation, respirations unlabored, no crackles, no wheezing. Gastrointestinal: Soft, no tenderness, non-distended. No guarding or rebound tenderness. Extremities: No edema, no cyanosis, no clubbing. 2+ radial pulse bilaterally, 2+ pedal pulse bilaterally. Neuro: No focal deficits observed. Conversant, moving all extremities. No overt cerebellar signs/incoordination. Psychiatric: Cooperative, appropriate affect. Discharge Plan Plan Patient Disposition: HOME (Self Care) Patient condition on transfer: Stable and Benefits outweigh risks Care Plan Goals: - You have been started on Metformin. Take as directed below. - You have been started on Insulin. Take 5 units a day. - Follow up with your primary care physician within 1 week of discharge. If you do not have a primary care physician, please follow up with the [facility] Residents clinic ([phone]) ? If you experience any new, worsening or persistent symptoms either call your primary doctor, or dial 911 or present to the emergency department. Se le perez recetado Metformina. T?ely seg?n las indicaciones que se detallan a continuaci?n. - Se le perez recetado insulina. [place] 5 unidades al d?a. - Consulte con nuñez m?dico de cabecera dentro de la semana posterior al jen. Si no tiene un m?dico de cabecera, comun?quese con la cl?jennifer de residentes de [facility] ([phone]). - Si presenta s?ntomas nuevos, que empeoran o persisten, llame a nuñez m?dico de cabecera, josiah el 911 o acuda al servicio de urgencias. Prescriptions/Referrals Prescriptions/Med Rec: New metformin 500 mg tablet 500 mg PO BID Qty: 14 0RF (DME) CareTouch Insulin Syringe 1 mL 28 x 5/16 syringe See Rx Instructions .Route Qty: 100 0RF Rx Instructions: As directed insulin degludec 100 unit/mL solution 5 unit subcut QDAY Qty: 10 0RF Referrals: No Primary/Family,Physician [Primary Care Provider] Patient/Caregiver Discharge Instructions Discharge Activity: activity as tolerated Education Materials: For Kids: Taking Your Insulin, ED Diabetes with High Blood Sugar Print Language: Serbian Stand Alone Forms: Luz Award Info., Patient Portal Info Letter, Work/Release Restrictions Discharge Order Discharge Orders: Discharge (Routine); Ordered 11/07/25 Ordered By: Willie Alford Quality Discharge Quality Measures VTE prophylaxis Attestestation MD Attestation I have seen and examined the patient. I was physically present for the singh portions of the services provided including history, physical exam, diagnosis, treatment plans and orders. I agree with assessment and plan of care as documented by residents. Even though this this note was carefully revised there may still be minor errors in rn navigator due to voice recognition software. Matthew Clemons MD
--- NOTE | 2025-11-07 15:29 | PC.SS ---
SS met with patient regarding his d/c plan. Pt is alert/oriented. Pt was admitted for Mairotation. Pt confirmed demographic and contact information is correct on facesheet. Pt states he is staying with his mom. Pt states he is visiting from [place] and is only here for a short visit. Pt resides in [place]. Pt ambulates independently without assistance or DME. Pt is ok with all ADLs. Pt named his mom, Lisseth Jc medical decision maker if he is unable. Patient?s choice is to return to his mom's house upon d/c. Pt states he will follow up with his physician in [place]. Mom will provide transportation. D/C plan: Return home with his mom Next of Kin: Lisseth Jc, mom, phone# [phone] PCP: in [place] Address: Correct on facesheet
[2025-11-07 16:00] VITALS: BP 135/97; PULSE 87; RESP 18; TEMP 36.3; O2SAT 99
--- NOTE | 2025-11-07 18:46 | PC.NURSE ---
HCIN utilized for discharge instructions and for demonstration and explanation for administering insulin
== END 2025-11-07 18:55 | disposition home or self-care (01) ==
LOC: SERX 11-07 05:33 → SERHOLD 11-07 05:57 → S3NX 11-07 07:01
PROVIDERS: Physician Assistant; Emergency Provider Emergency Medicine
DX: R10.9 Unspecified abdominal pain (principal); R11.2 Nausea with vomiting, unspecified; E11.65 Type 2 diabetes mellitus with hyperglycemia; R79.89 Other specified abnormal findings of blood chemistry; N32.89 Other specified disorders of bladder; K80.20 Calculus of gallbladder without cholecystitis without obstruction; Z91.148 Patient's other noncompliance with medication regimen for other reason
CPT/HCPCS: 36415; 71045; 74177; 76705; 80048; 80053; 80069; 80076; 80307; 80320; 81001; 82010; 82803; 83036; 83690; 85025; 96361; 96372; 96374; 96375; 99284; A4649; G0378; J1200; J1644; J1815; J2270; J2405; J2765; J7120; Q9967; A9270; G0480